=== PATIENT | female | born 1995 | race American Indian/Alaskan Native ===

== ENCOUNTER 2017-10-17 12:02 | Outpatient (CLI) | payer MEDICAID ==
[2017-10-17] MEDS ORDERED: LACTATED RINGERS 500 ML IV ONE (12:30)
[2017-10-17 13:14] LABS: Bacteria,Urine 1+ /HPF (Negative); Bilirubin,Urine NEG (Negative); Blood,Urine NEG (Negative); Color,Urine Yellow (Yellow); Mucus,Urine 1+ /HPF; Protein,Urine <15 mg/dL mg/dL (Negative); Urobilinogen,Urine < 2.0 mg/dL (<2.0)
== END 2017-10-17 14:25 | disposition home or self-care (01) ==
LOC: TRG 12:02
PROVIDERS: ATTEND Obstetrics & Gynecology
DX: O47.02 False labor before 37 completed weeks of gestation, second trimester (principal); Z3A.22 22 weeks gestation of pregnancy
CPT/HCPCS: 59025; 81001

== ENCOUNTER 2017-12-22 00:25 | Outpatient (CLI) | payer MEDICAID ==
[2017-12-22 00:45] VITALS: BP 112/57
[2017-12-22] MEDS ORDERED: LACTATED RINGERS 500 ML IV ONE (01:03)
[2017-12-22] MEDS ORDERED: LACTATED RINGERS 1,000 ML ONE (01:33)
[2017-12-22 01:38] LABS: Bilirubin,Urine NEG (Negative); Blood,Urine NEG (Negative); Calcium Oxalate Crystals,Urine 1+; Color,Urine Yellow (Yellow); Mucus,Urine 3+ /HPF
== END 2017-12-22 02:45 | disposition home or self-care (01) ==
LOC: TRG 00:25
PROVIDERS: ATTEND Obstetrics & Gynecology
DX: O47.03 False labor before 37 completed weeks of gestation, third trimester (principal); Z3A.31 31 weeks gestation of pregnancy
CPT/HCPCS: 59025; 81001; J7120